=== PATIENT | female | born 1955 | race Caucasian/White ===

== ENCOUNTER → 2021-01-09 | Outpatient (CLI) | payer MEDICARE ==
--- NOTE | 2021-01-12 11:14 | RAD ---
DATE: 01/09/2021 8:05 AM EXAM: MAMMO KASIE SCREEN RT HISTORY: Screening. History of left mastectomy 5 years ago COMPARISON: Right mammogram of 07/27/2019 and 07/15/2019 CC and MLO views of the right breast were performed. Breast tomosynthesis was performed in CC and MLO projections. This study was interpreted with the benefit of Computerized Aided Detection (CAD). FINDINGS: Breast Density: DENSE The breast Parenchyma is dense, which could reduce the sensitivity of mammography. Breast parenchyma level density D. No suspicious masses, microcalcifications or architectural distortion is present to suggest malignancy in either breast. The visualized axillae are unremarkable. IMPRESSION: No mammographic evidence of malignancy. BI-RADS CATEGORY: 1 NEGATIVE RECOMMENDED FOLLOW-UP: 12M 12 MONTH FOLLOW-UP Annual screening mammography is recommended, unless clinically indicated sooner based on symptoms or change in physical exam. PQRS compliance statement: Patient information was entered into a reminder system with a target due date for the next mammogram. Mammography is a sensitive method for finding small breast cancers, but it does not detect them all and is not a substitute for careful clinical examination. A negative mammogram does not negate a clinically suspicious finding and should not result in delay in biopsying a clinically suspicious abnormality. "Our facility is accredited by the [employer] Mammography Program."
== END ==
LOC: MAMMO 07:51
PROVIDERS: ATTEND Family Medicine
DX: Z12.31 Encounter for screening mammogram for malignant neoplasm of breast (principal); Z90.12 Acquired absence of left breast and nipple
CPT/HCPCS: 77063; 77067

== ENCOUNTER 2021-06-17 20:57 | Emergency (ER) | payer MEDICARE ==
[~2021-06-17] VITALS: Ht 177.8 cm; Wt 57.2 kg
[2021-06-17] MEDS ORDERED: LIDOCAINE/EPI/TETRACAINE TOPICAL GEL 3 ML. TP ONE (21:02)
[2021-06-17 21:07] VITALS: BP 153/75
--- NOTE | 2021-06-17 23:07 | RAD ---
CT MAXILLOFACIAL WITHOUT CONTRAST, CT HEAD AND C-SPINE WO Date: 06/17/2021 9:45 PM Clinical Indication: trauma, pain Comparison: None. Technique: Axial computed tomographic images were obtained of the head, maxillofacial structures, an d cervical spine without contrast. Multiplanar reconstructions were performed. One or more of the fol lowing dose reduction techniques were utilized: Automated exposure control (AEC), Adjustment of mA an d/or kV according to patient size, Use of iterative reconstruction technique such as ASiR, CT scan do ne according to ALARA and image gently/image wisely CT Head Findings: Mild generalized cerebral and cerebellar volume loss. Mild nonspecific periventricular hypoattenuatio n, most commonly seen with chronic small vessel ischemic disease. No intra- or extra-axial mass or fluid collection. No acute hemorrhage. The ventricles are normal in size, shape, and morphology. The fernández-white matter junction is normal. The basilar cisterns are paten t. The mastoid air cells are clear. No aggressive osseous lesion or fracture. CT Face Findings: There is no acute facial bone fracture. Scalp swelling lateral to the left orbit. The paranasal sinuses are clear. The orbits are normal. The globes are intact. CT Cervical Spine Findings: The cervical spine is normally aligned. No acute fracture. No aggressive lytic or blastic osseous les ions. Moderate multilevel degenerative disc space height loss. Multilevel mild spinal canal stenosis second marco to disc protrusions and marginal osteophytes. Multilevel mild neuroforaminal narrowing secondary to uncovertebral arthrosis. Multilevel mild facet arthrosis. The thyroid gland is normal. No cervical lymphadenopathy. Bilateral carotid atherosclerosis. The visu alized aerodigestive tract is normal. Paraseptal emphysema. Impression: 1. No acute intracranial process. 2. No acute facial bone fracture. Scalp swelling lateral to the left orbit. 3. No acute osseous abnormality of the cervical spine Electronically signed by: Edinson Flaherty MD (06/17/2021 11:05 PM) [facility]
[2021-06-17] MEDS ORDERED: CEPH500C PO (23:25)
--- NOTE | 2021-06-17 23:27 | PHYS DOC ---
Past History Past Surgical History: No Surgical History Alcohol Use: Occasionally Adult General Chief Complaint Chief Complaint: LACERATION/AVULSION [facility] HPI Patient is a 65-year-old female up-to-date on vaccinations who presents with a chief complaint of laceration to the face. States that she turned into the corner of her wooden cabinet and cut the left side of her face. Denies any other injuries. Denies any headache, changes in vision, neck pain, chest pain, shortness of breath, abdominal pain, nausea, vomiting. Denies any numbness/weakness/tingling. Denies any changes in vision. Review of Systems Review of Systems Constitutional: Denies fever or chills [] Eyes: Denies change in visual acuity, redness, or eye pain [] HENT: Denies nasal congestion or sore throat [] Respiratory: Denies cough or shortness of breath [] Cardiovascular: No additional information not addressed in HPI [] GI: Denies abdominal pain, nausea, vomiting, bloody stools or diarrhea [] : Denies dysuria or hematuria [] Musculoskeletal: Denies back pain or joint pain [] Integument: Denies rash or skin lesions [] Neurologic: Denies headache, focal weakness or sensory changes [] Endocrine: Denies polyuria or polydipsia [] All other systems were reviewed and found to be within normal limits, except as documented in this note. Current Medications Current Medications Current Medications Medications (Trade) Dose Ordered Sig/Mere Start Time Stop Time Status Last Admin Dose Admin Fentanyl Citrate (Fentanyl 2ml Vial) 50 mcg 1X ONCE 06/17/21 22:00 06/17/21 22:01 DC 06/17/21 22:25 50 MCG Lidocaine/ Epinephrine (Let (Xpse-Zjhplas-Lldob) Gel) 3 ml STK-MED ONCE 06/17/21 21:02 06/17/21 21:02 DC Allergies Allergies Allergies Coded Allergies Type Severity Reaction Last Updated Verified iodine Allergy Severe 06/17/21 Yes promethazine Allergy Intermediate 06/17/21 Yes Physical Exam Physical Exam Constitutional: Well developed, well nourished, no acute distress, non-toxic appearance. [] HENT: Normocephalic, atraumatic, bilateral external ears normal, oropharynx m oist, no oral exudates, nose normal. [] Eyes: PERRLA, EOMI, conjunctiva normal, no discharge. [] Neck: Normal range of motion, no tenderness, supple, no stridor. [] Cardiovascular:Heart rate regular rhythm, no murmur [] Lungs & Thorax: Bilateral breath sounds clear to auscultation [] Back: No tenderness, Extremities: No tenderness, ROM intact, no edema. [] Neurologic: Alert and oriented X 3, normal motor function, normal sensory function, able to sit, stand and walk without issue no focal deficits noted. [] Psychologic: Affect normal, judgement normal, mood normal. [] Current Patient Data Vital Signs Vital Signs Date Time Temp Pulse Resp B/P (MAP) Pulse Ox O2 Delivery O2 Flow Rate FiO2 06/17/21 22:25 18 98 Room Air 06/17/21 21:07 98.6 130 153/75 EKG EKG [] Radiology/Procedures Radiology/Procedures []T MAXILLOFACIAL WITHOUT CONTRAST, CT HEAD AND C-SPINE WO Date: 06/17/2021 9:45 PM Clinical Indication: trauma, pain Comparison: None. Technique: Axial computed tomographic images were obtained of the head, maxillofacial structures, and cervical spine without contrast. Multiplanar reconstructions were performed. One or more of the following dose reduction techniques were utilized: Automated exposure control (AEC), Adjustment of mA and/or kV according to patient size, Use of iterative reconstruction technique such as ASiR, CT scan done according to ALARA and image gently/image wisely CT Head Findings: Mild generalized cerebral and cerebellar volume loss. Mild nonspecific per iventricular hypoattenuation, most commonly seen with chronic small vessel ischemic disease. No intra- or extra-axial mass or fluid collection. No acute hemorrhage. The ventricles are normal in size, shape, and morphology. The fernández-white matter junction is normal. The basilar cisterns are patent. The mastoid air cells are clear. No aggressive osseous lesion or fracture. CT Face Findings: There is no acute facial bone fracture. Scalp swelling lateral to the left orbit. The paranasal sinuses are clear. The orbits are normal. The globes are intact. CT Cervical Spine Findings: The cervical spine is normally aligned. No acute fracture. No aggressive lytic or blastic osseous lesions. Moderate multilevel degenerative disc space height loss. Multilevel mild spinal canal stenosis secondary to disc protrusions and marginal osteophytes. Multilevel mild neuroforaminal narrowing secondary to uncovertebral arthrosis. Multilevel mild facet arthrosis. The thyroid gland is normal. No cervical lymphadenopathy. Bilateral carotid atherosclerosis. The visualized aerodigestive tract is normal. Paraseptal emphysema. Impression: 1. No acute intracranial process. 2. No acute facial bone fracture. Scalp swelling lateral to the left orbit. 3. No acute osseous abnormality of the cervical spine 5 cm laceration to the left lateral and superior of the left orbit, bleeding controlled. Cleaned wound with sterile water. L ET placed for initial topical anesthesia. Three mils of 2% lidocaine injected for anesthesia. 11 sutures of 6-0 Ethilon placed. Patient tolerated procedure well. Cleaned wound and bandaged. Heart Score C/O Chest Pain: No Risk Factors: Risk Factors: DM, Current or recent (<one month) smoker, HTN, HLP, family history of CAD, obesity. Risk Scores: Risk Factors: DM, Current or recent (<one month) smoker, HTN, HLP, family history of CAD, obesity. Course & Med Decision Making Course & Med Decision Making Patient is a 65-year-old female who presents with facial laceration Vital signs not concerning. Physical exam noted above. Fentanyl given for pain. Wound cleaned and repaired with suture. Tetanus up-to-date. Imaging of the head, face and neck with no acute osseous abnormalities. Patient started on antibiotics in the emergency department. Gave pain recommendations for home. Advised to call primary care physician first thing Saturday morning to update on ED visit and set up a follow-up visit in 5 to 7 days for wound check and suture removal. Gave strict return precautions to the ED. Patient grateful, verbalized understanding and agreed with plan of discharge. [] Dragon Disclaimer Dragon Disclaimer This electronic medical record was generated, in whole or in part, using a voice recognition dictation system. Departure Departure: Impression: Primary Impression: Facial laceration Disposition: HOME / SELF CARE / HOMELESS Condition: GOOD Referrals: SUGEY MANZANO MD (PCP) Patient Instructions: Facial Laceration, Sutured Wound Care Additional Instructions: Thank you for coming into the emergency department tonight and allowing us to take care of you. Please read all the attached information very carefully. You stated that your tetanus vaccination was up-to-date. Your wound was cleaned and repaired with stitches. You can begin to use a Tylenol, ibuprofen and ice regimen at home for pain control as needed. Please call your primary care physician first thing Saturday morning to update on your ED visit and set up a follow-up appointment in 5 to 7 days for a wound check and suture removal. Please do not go any longer than 7 days without being seen. You can come back t o the emergency department if you have any new or concerning symptoms or you are unable to get into your primary care physician. Scripts Cephalexin (CEPHALEXIN) 500 Mg Capsule 1 CAP PO TID for laceration for 3 Days, #9 CAP Prov: NEEL REY MD 06/17/21 NEEL REY MD Jun 17, 2021 23:27
[2021-06-17] MEDS ORDERED: CEPHALEXIN 250 MG CAPSULE PO ONE (23:45)
[2021-06-17 23:51] LABS: BASO # 0.1 x10^3/uL (0.0-0.2); BASO % 1 % (0-3); EOS % 0 % (0-3); HEMATOCRIT 35.5 % (36.0-47.0); HEMOGLOBIN 12.5 g/dL (12.0-15.5); LYMPH # 1.2 x10^3/uL (1.0-4.8); LYMPH % 15 % (24-48); MEAN CORPUSCULAR HEMOGLOBIN 33 pg (25-35); MEAN CORPUSCULAR HGB CONC 35 g/dL (31-37); MEAN CORPUSCULAR VOLUME 92 fL (79-100); MONO # 0.7 x10^3/uL (0.0-1.1); MONO % 8 % (0-9); NEUT # 6.4 x10^3uL (1.8-7.7); NEUT % 76 % (31-73); PLATELET COUNT 269 x10^3/uL (140-400); RED BLOOD COUNT 3.84 x10^6/uL (3.50-5.40); WHITE BLOOD COUNT 8.5 x10^3/uL (4.0-11.0)
[2021-06-18] LABS: CALCIUM 8.3 mg/dL (8.5-10.1); CREATININE 0.6 mg/dL (0.6-1.0)
== END 2021-06-17 23:59 | disposition home or self-care (01) ==
LOC: ER 20:57
DX: S01.81XA Laceration without foreign body of other part of head, initial encounter (principal); Z88.8 Allergy status to other drugs, medicaments and biological substances; W22.03XA Walked into furniture, initial encounter; Y93.89 Activity, other specified; Y92.89 Other specified places as the place of occurrence of the external cause; Y99.8 Other external cause status
CPT/HCPCS: 12013; 36415; 70450; 70486; 72125; 80048; 85025; 96372; 99285; J3010

== ENCOUNTER → 2021-08-10 | Outpatient (CLI) | payer MEDICARE ==
[~2021-08-10] MED LIST: CEPH500C PO
--- NOTE | 2021-08-10 12:11 | RAD ---
EXAM: CT CHEST WITHOUT CONTRAST (LDCT LUNG CANCER SCREENING). HISTORY: Risk factors for pulmonary malignancy. Reported 40 pack year history. Provided history of br east cancer status post left mastectomy. TECHNIQUE: CT of the chest was performed without intravenous contrast using a low-dose lung screening protocol. Findings analysis is based on ACR Lung-RADS v1.1. *One or more of the following individual ized dose reduction techniques were utilized for this examination: 1. Automated exposure control. 2. Adjustment of the mA and/or kV according to patient size. 3. Use of iterative reconstruction technique. RADIATION DOSE: DLP: 53.4 mGy*cm CTDI VOL(per sequence): 1.4 mGy; 0.13 mGy COMPARISON: None. FINDINGS: Nodules/Lungs: No suspicious pulmonary nodule throughout either lung. Scarring and paraseptal more so than centrilob ular emphysema at the right more so than left upper lungs. Right more so than left apices. Other findings: Multifocal calcific atherosclerosis with trivessel coronary artery involvement. Dense calcifications at the right and partially imaged left renal artery origins with incomplete assessment for resultant stenoses. Nonaneurysmal aorta. Main pulmonary artery caliber is within normal limits. No mediastinal or hilar adenopathy by size criteria. Surgical changes along the distal esophagus/gastroesophageal ju nction and at the left upper quadrant. There appear to be calcifications within the distal pancreatic body and to the tail. Incompletely characterized small area of mineralization at the upper aspect of the right kidney. Left mastectomy. No axillary adenopathy on either side. Several poorly characterized thyroid nodules. The bones appear osteopenic. Scattered degenerative changes with discogenic arthrosis most pronounced at C6-C7 and partially imaged at C5-C6. IMPRESSION/RECOMMENDATION: 1. No pulmonary nodule is identified that would warrant short term follow-up. Lung-RADS category 2 - continue with annual low-dose screening CT. 2. Paraseptal more so than centrilobular emphysema. 3. Multifocal calcific atherosclerosis to include trivessel coronary artery involvement. 4. There appears to be calcifications along the distal pancreatic body into the tail as can be seen f rom previous bouts of pancreatitis. The pancreas itself is not well evaluated. 5. Incompletely characterized small area of mineralization at the upper pole of the right kidney. 6. Multinodular thyroid with limited ability to determine nodule size. Note is made that nodules were partially imaged on the 06/17/2021 CT cervical spine. Electronically signed by: TIRSO SORIA MD (08/10/2021 12:08 PM) [facility]
== END ==
LOC: CT 09:42
PROVIDERS: ATTEND Family Medicine
DX: Z12.2 Encounter for screening for malignant neoplasm of respiratory organs (principal); J43.2 Centrilobular emphysema; J98.4 Other disorders of lung; E04.2 Nontoxic multinodular goiter; I25.10 Atherosclerotic heart disease of native coronary artery without angina pectoris; I70.1 Atherosclerosis of renal artery; Z87.891 Personal history of nicotine dependence
CPT/HCPCS: 71271

== ENCOUNTER → 2021-08-24 | Outpatient (CLI) | payer MEDICARE ==
--- NOTE | 2021-08-24 09:04 | RAD ---
PQRS Compliance Statement: One or more of the following individualized dose reduction techniques were utilized for this examinat ion: 1. Automated exposure control 2. Adjustment of the mA and/or kV according to patient size 3. Use of iterative reconstruction technique CT LOW DOSE LUNG SCREEN 08/24/2021 8:19 AM Indication: Tobacco dependence for 25 years, one pack per day. History of adrenal cancer with metasta sis to the breast. COMPARISON: CT chest 08/10/2021 TECHNIQUE: Multiple axial CT images of the chest were obtained without intravenous contrast utilizing low-dose technique. Coronal and sagittal reformats are provided. FINDINGS: Stable 2 mm solid noncalcified pulmonary nodule in the medial anterior left upper lobe (series 5, bryanna [id number]). There is biapical pleural-parenchymal scarring. No new or enlarging solid noncalcified pulmo nary nodules. Mild centrilobular pulmonary emphysema. Mild bronchial wall thickening compatible with nonspecific bronchitis. Surgical clips identified in the left axilla. Left mastectomy changes are pre sent. Right breast is normal in appearance. There is a nodule within left thyroid lobe measuring 1.5 cm, stable. No pathologically enlarged thoracic lymph nodes limitation of noncontrast examination. Mi nor coronary artery vascular calcifications are present. Ascending thoracic aorta measures 3.6 cm. Co il mass identified in the left upper quadrant abdomen. No suspicious osseous abnormality is identifie d. Moderate to advanced degenerative disc disease identified at C5-C6 and C6-C7 with endplate erosive changes. IMPRESSION: Stable solid noncalcified pulmonary nodule measuring 2 mm anterior medial left upper lobe. LUNG-RADS category 2, benign appearance or behavior. Recommend low-dose chest CT in one year. Mild COPD changes with centrilobular pulmonary emphysema and nonspecific bronchitis. Electronically signed by: Beatrice Frederick MD (08/24/2021 9:02 AM) [id number]
--- NOTE | 2021-08-24 10:26 | RAD ---
US THYROID History: Reason: MULTIPLE THYROID NODULES / Spl. Instructions: / History: Comparison: CT August 10, 2021 Technique: Multiple grayscale and color Doppler images of the thyroid gland were obtained. Findings: Right thyroid lobe: 5.1 x 1.4 x 0.9 cm. Homogeneous echotexture. Left thyroid lobe: 5.0 x 1.5 x 1.0 cm. Homogeneous echotexture. Isthmus: 0.1 cm. -Solid hypoechoic right inferior thyroid nodule measures 0.6 x 0.6 x 0.5 cm. TI-RADS 4. -Solid hypoechoic left superior nodule measures 1.3 x 1.1 x 0.6 cm. TI-RADS 4. There is additional small thyroid cysts bilaterally. ACR Thyroid Imaging, Reporting And Data System (TI-RADS): White Paper Of The ACR TI-RADS Committee. J ournal of the [place] [employer], volume 14, issue 5, pages 587-595 (April 2017). IMPRESSION: 1. TI-RADS 4 bilateral thyroid nodules. Recommend one-year ultrasound follow-up. Electronically signed by: Gurpreet Faria DO (08/24/2021 10:23 AM) [id number]
== END ==
LOC: US 07:53
PROVIDERS: ATTEND Family Medicine
DX: Z12.2 Encounter for screening for malignant neoplasm of respiratory organs (principal); E04.2 Nontoxic multinodular goiter; R91.1 Solitary pulmonary nodule; J43.2 Centrilobular emphysema; J40 Bronchitis, not specified as acute or chronic; F17.210 Nicotine dependence, cigarettes, uncomplicated
CPT/HCPCS: 71271; 76536